=== PATIENT | female | born 1975 | race African-American/Black ===

== ENCOUNTER 2017-03-20 18:09 | Emergency (ER) | payer OTHER ==
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
== END 2017-03-20 20:30 | disposition home or self-care (01) ==
LOC: CED 18:09 → CFTX 18:09
DX: S16.1XXA Strain of muscle, fascia and tendon at neck level, initial encounter (principal); V49.00XA Driver injured in collision with unspecified motor vehicles in nontraffic accident, initial encounter
CPT/HCPCS: 72125; 84703; 96372; 99284; J1885